=== PATIENT | male | born 1960 | race African-American/Black ===

== ENCOUNTER 2022-04-16 10:19 | Emergency (ER) | payer MEDICAID ==
[~2022-04-16] VITALS: Ht 170.2 cm; Wt 105.0 kg
[2022-04-16] MEDS ORDERED: KETOROLAC 15MG/ML VIAL IV ONE (13:30)
[2022-04-16] MEDS ORDERED: FAMOTIDINE 20MG/2ML VIAL IV ONE (13:30)
[2022-04-16] MEDS ORDERED: CYCLOBENZAPRINE 10MG TABLET PO NR (14:45)
[2022-04-16 15:18] LABS: CHLORIDE 101 mEq/L (98-107)
[2022-04-16 15:24] LABS: EOSINOPHILS % 2.9 % (0.0-5.0); HEMATOCRIT. 45.1 % (42.0-52.0); MEAN CORPUSCULAR HEMOGLOBIN 27.9 pg (28.0-32.0); MEAN CORPUSCULAR VOLUME 83.9 fL (80.0-94.0); MEAN PLATELET VOLUME 8.6 fl (7.4-10.4); MONOCYTES % 10.3 % (2.0-8.0); NEUTROPHILS % 50.8 % (40.0-76.0); PLATELET 235 x1000/uL (130-400); RED BLOOD CELL COUNT 5.38 mill/uL (4.7-6.1); RED CELL DISTRIBUTION WIDTH 14.4 % (11.6-14.6)
[2022-04-16] MEDS ORDERED: IBUP-2028 MT (19:36)
[2022-04-16] MEDS ORDERED: METH-653 MT (19:36)
[2022-04-16 19:50] VITALS: BP 131/76
[2022-04-16] MEDS ORDERED: IOHEXOL-350 100 ML BOTTLE ONE (20:02)
== END 2022-04-16 21:23 | disposition home or self-care (01) ==
LOC: ER 10:19
DX: R07.89 Other chest pain (principal)
CPT/HCPCS: 36415; 71045; 71275; 80053; 84484; 85025; 93005; 96374; 96375; 99285; J1885; J3490; Q9967

== ENCOUNTER 2022-05-03 17:28 | Inpatient (IN) | payer MEDICAID ==
[~2022-05-03] VITALS: Ht 170.2 cm; Wt 134.7 kg
[~2022-05-03 17:28] MED LIST: IBUP-2028 MT; METH-653 MT
[2022-05-03] MEDS ORDERED: NITROGLYCERIN 0.4MG TABLET SL SL PRN (18:00)
[2022-05-03] MEDS ORDERED: ASPIRIN 81MG TABLET PO ONE (18:00)
[2022-05-03 19:16] LABS: HEMATOCRIT. 42.6 % (42.0-52.0); HEMOGLOBIN. 14.1 g/dL (14.0-18.0); MEAN CORPUSCULAR HEMOGLOBIN 27.9 pg (28.0-32.0); MEAN CORPUSCULAR VOLUME 84.1 fL (80.0-94.0); MEAN PLATELET VOLUME 9.2 fl (7.4-10.4); PLATELET 263 x1000/uL (130-400); RED BLOOD CELL COUNT 5.06 mill/uL (4.7-6.1); RED CELL DISTRIBUTION WIDTH 14.5 % (11.6-14.6)
[2022-05-03 19:26] LABS: CHLORIDE 104 mEq/L (98-107)
[2022-05-03] MEDS ORDERED: MORPHINE SULFATE 4 MG/ML CPJ (NOT FOR IM USE) IV ONE (20:00)
[2022-05-03] MEDS ORDERED: ONDANSETRON HCL 4MG/2ML INJ IV PRN (22:45)
[2022-05-03] MEDS ORDERED: HYDROCODONE/ACETAMINOPHEN 10/325MG TABLET PO PRN (22:45)
[2022-05-03] MEDS ORDERED: ACETAMINOPHEN 650MG/20.3ML UDC GT PRN (22:45)
[2022-05-03] MEDS ORDERED: IPRATROPIUM/ALBUTEROL 0.5-3(2.5)MG/3ML NEB HHN PRN (22:45)
[2022-05-03] MEDS ORDERED: DOCUSATE SODIUM 100MG CAPSULE PO PRN (22:45)
[2022-05-03] MEDS ORDERED: NA PHOS,M-B/NA PHOS,DI-BA ENEMA 118ML PR PRN (22:45)
[2022-05-03] MEDS ORDERED: DIPHENHYDRAMINE 50MG/ML VIAL IV PRN (22:45)
[2022-05-03] MEDS ORDERED: NALOXONE HCL 0.4MG/ML VIAL IV PRN (22:45)
[2022-05-03] MEDS ORDERED: MAGNESIUM/ALUMINUM HYDROXIDE/SIMETHICONE 30ML UDC PO PRN (22:45)
[2022-05-03] MEDS ORDERED: CLONIDINE 0.1MG TABLET PO PRN (22:45)
[2022-05-03] MEDS ORDERED: ACETAMINOPHEN 325MG TABLET PO PRN (22:45)
[2022-05-03] MEDS ORDERED: GUAIFENESIN 200MG/10ML SUGAR FREE UDC PO PRN (22:45)
[2022-05-03] MEDS ORDERED: BISACODYL 5MG TABLET PO NR (23:15)
[2022-05-03 23:20] LABS: PLATELET ESTIMATE NORMAL
[2022-05-04] MEDS: NICOTINE 14MG PATCH TD SCH (01:56)
[2022-05-04] MEDS: DOCUSATE SODIUM 100MG CAPSULE PO SCH ×3 (01:56→17:52)
[2022-05-04 04:37] LABS: HEMATOCRIT 42.9 % (42.0-52.0); HEMOGLOBIN 14.6 g/dL (14.0-18.0); MEAN CORPUSCULAR HEMOGLOBIN 28.7 pg (28.0-32.0); MEAN CORPUSCULAR VOLUME 84.2 fL (80.0-94.0); PLATELET 195 x1000/uL (130-400); RED BLOOD CELL COUNT 5.09 mill/uL (4.7-6.1); RED CELL DISTRIBUTION WIDTH 14.6 % (11.6-14.6)
[2022-05-04 04:42] LABS: CHLORIDE 105 mEq/L (98-107)
[2022-05-04] MEDS: HYDROCODONE/ACETAMINOPHEN 5/325MG TABLET PO PRN ×2 (04:54→17:52)
[2022-05-04 05:03] LABS: HDL CHOLESTEROL 43 mg/dL (40-59); LDL CHOLESTEROL 160 mg/dL (5-100); PHOSPHORUS 3.5 mg/dL (2.5-4.9); T4 FREE 1.15 ng/dL (0.76-1.46)
[2022-05-04] MEDS ORDERED: ASPIRIN 81MG TABLET PO NR (06:00)
[2022-05-04] MEDS: PANTOPRAZOLE 40MG DR TABLET PO SCH ×2 (06:54→07:50)
[2022-05-04] MEDS: ENOXAPARIN 40MG/0.4ML SYR SUBCUT SCH ×2 (09:00→21:00)
[2022-05-04 15:00] VITALS: BP 148/87
[2022-05-04 15:38] VITALS: BP 148/87
[2022-05-04 16:00] VITALS: BP 144/78
[2022-05-04 20:00] VITALS: BP 142/70
[2022-05-04] MEDS ORDERED: ATORVASTATIN CALCIUM 40MG TABLET PO SCH (21:00)
[2022-05-05] VITALS: BP 145/76
[2022-05-05 04:00] VITALS: BP 146/61
[2022-05-05] MEDS: PANTOPRAZOLE 40MG DR TABLET PO SCH (05:48)
[2022-05-05 08:00] VITALS: BP 131/78
[2022-05-05] MEDS: DOCUSATE SODIUM 100MG CAPSULE PO SCH (08:48)
[2022-05-05] MEDS: ENOXAPARIN 40MG/0.4ML SYR SUBCUT SCH (08:49)
[2022-05-05] MEDS: NICOTINE 14MG PATCH TD SCH (08:49)
[2022-05-05 12:00] VITALS: BP 153/100
[2022-05-05 14:06] VITALS: BP 150/100
[2022-05-06] MEDS ORDERED: FAMOTIDINE 20MG TABLET PO SCH (06:50)
== END 2022-05-05 14:50 | disposition home or self-care (01) | DRG 203 ==
LOC: ER 17:28 → 3WST 20:03 → EDBEDREQTM 20:20 → EDBEDREQ 20:20 → ENRESERV 05-04 12:33
PROVIDERS: ADMIT Hospitalist; ATTEND Hospitalist
DX: M94.0 Chondrocostal junction syndrome [Tietze] (principal); I50.33 Acute on chronic diastolic (congestive) heart failure; I11.0 Hypertensive heart disease with heart failure; E66.01 Morbid (severe) obesity due to excess calories; K59.00 Constipation, unspecified; Z60.2 Problems related to living alone; E78.5 Hyperlipidemia, unspecified; F17.210 Nicotine dependence, cigarettes, uncomplicated; Z20.822 Contact with and (suspected) exposure to COVID-19; Z79.899 Other long term (current) drug therapy; Z68.42 Body mass index [BMI] 45.0-49.9, adult; Z71.6 Tobacco abuse counseling
CPT/HCPCS: 36415; 71045; 80048; 80053; 80061; 83036; 83735; 83880; 84100; 84439; 84443; 84484; 85025; 85027; 85379; 87426; 93005; 93306; 93970; 97162; 97166; 99285; J1200; J1650; J2270